=== PATIENT | female | born 1950 | race Caucasian/White ===

== ENCOUNTER → 2017-01-12 | Outpatient (CLI) | payer MEDICARE | LOC: KOH-I 09:41 | DX: R25.1 Tremor, unspecified (principal) | CPT/HCPCS: 70450 ==

== ENCOUNTER 2020-05-02 16:59 | Emergency (ER) | payer MEDICARE ==
[~2020-05-02 16:59] MED LIST: ASPIRIN81 MG PO; ATORVASTATIN CA20 MG PO; AZILECT1 MG PO; CALCIUM600 MG PO; CARBIDOPA-LEVO1 EAC3 PO; ECOTRIN81 MG PO; ELIQUIS5 MG PO; FLONASE 0.05% N16 GM; METOPROLOL SUCC25 MG PO; MULTAQ 400 MG400 MG PO; NITROSTAT 0.40.4 MG SL; NORCO 5-325 TA1 EACH PO; NUPRO TD; RANEXA500 MG PO; TOPROL XL25 MG PO; VITAMIN D32000 UNI1 PO; ZESTRIL40 MG PO; ZOCOR40 MG PO
[2020-05-02 19:37] LABS: HEMOGLOBIN 13.5 gm/dl (12.3-15.3); RED BLOOD COUNT 4.49 M/UL (4.00-5.10); WHITE BLOOD COUNT 6.2 K/UL (4.5-11.0)
[2020-05-02 19:58] LABS: BUN/CREATININE RATIO 28 (0-10)
[2020-05-02] MEDS ORDERED: PYRIDIUM100 MG PO (21:04)
[2020-05-02] MEDS ORDERED: LEVOFLOXACIN500 MG PO (21:04)
== END 2020-05-02 21:35 | disposition home or self-care (01) ==
LOC: ER1 16:59
PROVIDERS: Preventive Medicine Occupational Medicine
DX: N30.90 Cystitis, unspecified without hematuria (principal); Z88.0 Allergy status to penicillin
CPT/HCPCS: 80053; 81001; 85025; 86140; 87086; 96365; 99284; J1956

== ENCOUNTER → 2021-11-11 | Outpatient (CLI) | payer MEDICARE ==
[~2021-11-11] MED LIST changes: +LEVOFLOXACIN500 MG PO; +PYRIDIUM100 MG PO
== END ==
LOC: MAMO 10:21
DX: Z12.31 Encounter for screening mammogram for malignant neoplasm of breast (principal)
CPT/HCPCS: 77063; 77067

== ENCOUNTER → 2021-11-21 | Day surgery (SDC) | payer MEDICARE ==
[~2021-11-21] MED LIST changes: +ACID CONTROLLER20 MG PO; +CRESTOR 10 MG T10 MG GT; +VITAMIN D31250 MCG PO
== END | disposition home or self-care (01) ==
LOC: OR 05:31
PROVIDERS: Surgery
PROC: 0DJD8ZZ Inspection of Lower Intestinal Tract, Via Natural or Artificial Opening Endoscopic (ICD-10-PCS; principal; 2021-11-21 08:15)
DX: Z12.11 Encounter for screening for malignant neoplasm of colon (principal); I11.0 Hypertensive heart disease with heart failure; I50.9 Heart failure, unspecified; E78.00 Pure hypercholesterolemia, unspecified; G20 Parkinson's disease; K21.9 Gastro-esophageal reflux disease without esophagitis; I48.0 Paroxysmal atrial fibrillation; E11.9 Type 2 diabetes mellitus without complications; Z79.01 Long term (current) use of anticoagulants; Z79.51 Long term (current) use of inhaled steroids; Z79.82 Long term (current) use of aspirin; Z79.899 Other long term (current) drug therapy; Z86.73 Personal history of transient ischemic attack (TIA), and cerebral infarction without residual deficits; Z88.0 Allergy status to penicillin; Z88.1 Allergy status to other antibiotic agents; Z91.018 Allergy to other foods; Z91.041 Radiographic dye allergy status
CPT/HCPCS: J2704

== ENCOUNTER → 2021-12-09 | Outpatient (CLI) | payer MEDICARE | LOC: MAMO 12:41 | DX: R92.8 Other abnormal and inconclusive findings on diagnostic imaging of breast (principal) | CPT/HCPCS: 77065; G0279 ==